=== PATIENT | male | born 1985 ===

== ENCOUNTER 2021-05-07 08:14 | Outpatient (CLI) | payer OTHER | END 2021-05-07 09:00 | disposition home or self-care (01) | LOC: RAD 08:14 | PROVIDERS: ATTEND Physical Medicine & Rehabilitation | DX: M25.512 Pain in left shoulder (principal); M54.2 Cervicalgia ==

== ENCOUNTER 2022-01-02 13:56 | Outpatient (CLI) | payer OTHER | END 2022-01-02 13:59 | disposition home or self-care (01) | LOC: RAD 13:56 | PROVIDERS: ATTEND Physical Medicine & Rehabilitation | DX: M25.531 Pain in right wrist (principal) ==